=== PATIENT | female | born 1995 | race Hispanic/Latino ===

== ENCOUNTER 2025-05-30 15:36 | Outpatient (CLI) | payer OTHER | END 2025-05-30 15:37 | disposition home or self-care (01) | LOC: ULT 15:36 | PROVIDERS: ATTEND Nurse Practitioner | DX: O09.32 Supervision of pregnancy with insufficient antenatal care, second trimester (principal); O32.1XX0 Maternal care for breech presentation, not applicable or unspecified; Z3A.23 23 weeks gestation of pregnancy | CPT/HCPCS: 76805 ==